=== PATIENT | male | born 1995 | race Caucasian/White ===

== ENCOUNTER 2017-04-21 12:58 | Emergency (ER) | payer SELFPAY ==
[2017-04-21 14:37] LABS: BASOPHIL % 0.2 % (0-2); PLATELET COUNT 215 x10^3mcL (130-400)
[2017-04-21 14:49] LABS: CARBON DIOXIDE 29.1 mmol/L (21-32); CHLORIDE SERUM 102 mmol/L (98-107); CREATININE SERUM 0.7 mg/dL (0.7-1.3); GFR1 > 60 mL/min; GLUCOSE SERUM 89 mg/dL (74-106); POTASSIUM SERUM 3.5 mmol/L (3.5-5.1); SODIUM SERUM 140 mmol/L (136-145)
[2017-04-21 14:59] LABS: ALBUMIN 3.6 g/dL (3.4-5.0); ALKALINE PHOSPHATASE 171 U/L (46-116); LIPASE 53 IU/L (73-393); TOTAL PROTEIN, SERUM 6.7 g/dL (6.4-8.2)
[2017-04-21 15:01] LABS: ALT/SGPT 1469 U/L (16-63); AMYLASE 20 U/L (25-115); AST/SGOT 1128 U/L (15-37)
[2017-04-21 15:03] LABS: BILIRUBIN TOTAL 16.3 mg/dL (0.20-1.00)
[2017-04-21] MEDS ORDERED: MULTIVITAMIN1 SGL PO (16:17)
[2017-04-21 16:58] LABS: UA SPECIFIC GRAVITY 1.025 (1.005-1.035); microscopic required? YES; urine erythrocyte NEGATIVE (NEGATIVE)
[2017-04-21 17:31] LABS: AMPHETAMINE QUAL UR NONE DETECTED (NEG <=1000)
[2017-04-21 18:44] VITALS: BP 120/64
== END 2017-04-21 18:44 | disposition home or self-care (01) ==
LOC: ED 12:58
PROVIDERS: Emergency Medicine
DX: R17 Unspecified jaundice (principal); R10.13 Epigastric pain
CPT/HCPCS: G0480; J1885; Q0092